=== PATIENT | female | born 2000 | race African-American/Black ===

== ENCOUNTER 2023-09-23 05:42 | Inpatient (IN) | payer BC ==
[2023-09-23] MEDS ORDERED: Sodium Chloride 0.9% 2.5 ML Syringe FLUSH PRN (06:36)
[2023-09-23] MEDS ORDERED: Water For Irrigation,Sterile 1,000 ML Container IRR PRN (06:36)
[2023-09-23] MEDS ORDERED: Lanolin 100% Cream 7 GM Tube TOP PRN ×2 (06:36→17:56)
[2023-09-23] MEDS ORDERED: Misoprostol 200 MCG Tab RECTAL PRN (06:36)
[2023-09-23] MEDS ORDERED: Misoprostol 200 MCG Tab PO PRN (06:36)
[2023-09-23] MEDS ORDERED: Acetaminophen 500 MG Tab PO PRN (06:36)
[2023-09-23] MEDS ORDERED: Bisacodyl 10 MG Supp RECTAL PRN ×2 (06:36→17:56)
[2023-09-23] MEDS ORDERED: Carboprost Tromethamine 250 MCG/1 mL Vial IM PRN ×2 (06:36)
[2023-09-23] MEDS ORDERED: Docusate Sodium 100 MG Cap PO PRN ×2 (06:36→17:56)
[2023-09-23] MEDS ORDERED: Sodium Chloride 0.9% 20 ML SDV IV PRN (06:36)
[2023-09-23] MEDS ORDERED: Lidocaine 1% 50 ML MDV INJECT PRN (06:36)
[2023-09-23] MEDS ORDERED: Methylergonovine 0.2 MG/1 ML Amp IM PRN ×2 (06:36)
[2023-09-23] MEDS ORDERED: Witch Hazel Medicated Pads 40/Jar TOP PRN ×2 (06:36→17:56)
[2023-09-23] MEDS ORDERED: Benzocaine/Menthol 20%-0.5% Spray 78 GM Cannister TOP PRN ×2 (06:36→17:56)
[2023-09-23] MEDS ORDERED: Butorphanol 1 MG/ML SDV IVPUSH PRN (06:36)
[2023-09-23] MEDS ORDERED: Tranexamic Acid IN NACL,ISO-OS 1,000 MG in Premix Bag 1 BAG IV PRN ×4 (06:36)
[2023-09-23] MEDS ORDERED: Ibuprofen 800 MG Tab PO PRN (06:36)
[2023-09-23] MEDS ORDERED: Sodium Chloride 0.9% 10 ML Syringe FLUSH PRN (06:36)
[2023-09-23] MEDS ORDERED: Lactated Ringers 1,000 ML IV SCH (06:45)
[2023-09-23] MEDS ORDERED: Oxytocin/0.9 % Sodium Chloride 30 UNIT/500 ML BAG IV SCH (06:45)
[2023-09-23] MEDS ORDERED: Phenylephrine HCl 0.5 MG/5 ML AMP IVPUSH PRN (07:14)
[2023-09-23] MEDS ORDERED: ePHEDrine 50 MG/ML SDV IVPUSH PRN ×2 (07:14)
[2023-09-23] MEDS ORDERED: Ropivacaine HCl/PF 400 MG in Premix Bag 1 BAG EPIDUR SCH (07:15)
[2023-09-23 07:16] LABS: HEMATOCRIT 34.3 % (37.0-47.0); MEAN CORPUSCULAR HEMOGLOBIN 30.2 pg (28.0-32.0); MEAN CORPUSCULAR VOLUME 86.4 fL (83.0-99.0); MEAN PLATELET VOLUME 11.7 fL (9.4-12.3); PLATELET COUNT,PLT 155 K/uL (150-400); RED BLOOD CELL COUNT 3.97 M/uL (4.10-5.30); WHITE BLOOD CELL COUNT,WBC 8.21 K/uL (3.9-11.3)
[2023-09-23] MEDS: Lactated Ringers 1,000 ML IV SCH ×2 (10:02→14:25)
[2023-09-23] MEDS ORDERED: Nalbuphine 10 MG/0.5 ML Syringe IVPUSH PRN (13:11)
[2023-09-23] MEDS ORDERED: Bupivacaine 0.25% 10 ML SDV ONE (14:30)
[2023-09-23] MEDS ORDERED: dexmedeTOMIDine HCl 200 MCG/2 ML SDV ONE (14:30)
[2023-09-23] MEDS ORDERED: oxyCODONE 5 MG Tab PO PRN (17:56)
[2023-09-23 18:30] LABS: PH,UMBILICAL ARTERIAL 7.172 (7.18-7.38)
[2023-09-23 18:31] LABS: PH,UMBILICAL VENOUS 7.282 (7.25-7.45)
[2023-09-24] MEDS: Acetaminophen 500 MG Tab PO PRN ×2 (00:04→09:06)
[2023-09-24 06:17] LABS: HEMOGLOBIN 11.8 g/dL (12.0-16.0)
[2023-09-24] MEDS: Ibuprofen 800 MG Tab PO PRN (14:00)
[2023-09-25] MEDS: Acetaminophen 500 MG Tab PO PRN (00:25)
[2023-09-25] MEDS: Ibuprofen 800 MG Tab PO PRN (00:25)
== END 2023-09-25 12:09 | disposition home or self-care (01) | DRG 560 ==
LOC: MW.OBCHECK 05:42 → MW.OB 05:44 → MW.OBCHECK 06:36 → MW.OB 06:36 → OBSVTOIN 17:40 → MW.OB 20:33
PROVIDERS: ADMIT Obstetrics & Gynecology; ATTEND Obstetrics & Gynecology
PROC: 10E0XZZ Delivery of Products of Conception, External Approach (ICD-10-PCS; principal; 2023-09-23)
PROC: 3E0R3BZ Introduction of Anesthetic Agent into Spinal Canal, Percutaneous Approach (ICD-10-PCS; 2023-09-23)
PROC: 00HU33Z Insertion of Infusion Device into Spinal Canal, Percutaneous Approach (ICD-10-PCS; 2023-09-23)
DX: O48.0 Post-term pregnancy (principal); O99.214 Obesity complicating childbirth; O42.02 Full-term premature rupture of membranes, onset of labor within 24 hours of rupture; O99.02 Anemia complicating childbirth; Z37.0 Single live birth; Z3A.40 40 weeks gestation of pregnancy
CPT/HCPCS: 01967; 36415; 51702; 59025; 59409; 82803; 84112; 85014; 85018; 85027; 86592; 86850; 86900; 86901; A9270-GY; J2300; J2590; J2795; J3490; J7120